=== PATIENT | male | born 1975 | race Caucasian/White ===

== ENCOUNTER 2017-10-17 08:16 | Day surgery (SDC) | payer BC ==
--- NOTE | 2017-10-12 17:09 | HP ---
PREOPERATIVE HISTORY AND PHYSICAL: DATE OF ADMISSION/SURGERY: 10/17/17 - [facility] DATE OF OFFICE VISIT: 10/11/17 ATTENDING SURGEON: Terri Griffith MD * (DICTATED BY PATRICK TRACEY) PROCEDURE: Left shoulder arthroscopic rotator cuff repair, decompression, debridement, and possible subpectoral biceps tenodesis. CHIEF COMPLAINT: Left shoulder pain. HISTORY OF PRESENT ILLNESS: Mr. Mccarty is a 42-year-old male who was referred to us by Dr. Santizo for left shoulder pain. 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 He states that he had an episode of shoulder pain 2 years ago. He got a cortisone injection and the pain resolved then. Then, he states that it got worsened about 6 weeks ago. He saw Dr. Santizo who did x-rays that revealed no fracture. Dr. Santizo performed a cortisone injection, which did help decrease the pain. Then, he had a fall on the shoulder on the day of the cortisone injection and had severe pain and weakness since the fall. So, Dr. Santizo ordered an MRI. He states that the pain has slowly decreased since the injection. He rates it as 3 /10 posterolateral ache. He reports cramping in his triceps. He was not on any recent PT. He takes ibuprofen as needed for pain. He has never had surgery in his left shoulder. He states that he has weakness above the head and with external rotation. He is able to sleep on the shoulder after the injection, but was not prior to the injection. He is not diabetic. He is a nonsmoker. He denies any fevers, chills, chest pain, shortness of breath and is doing well otherwise. PAST MEDICAL HISTORY: Hypertension. PAST SURGICAL HISTORY: Spinal surgery at L4 and 5 in 2005. No prior complications with the anesthesia. MEDICATIONS: 1. Percocet 5/325 one to two every 8 hours as needed for pain. 2. Multivitamin 1 by mouth daily. ALLERGIES: TRAMADOL and PENICILLIN. FAMILY HISTORY: Positive for heart disease and cancer. Negative for diabetes. Denies family history of DVT or PE. SOCIAL HISTORY: He lives with his spouse. He is a nonsmoker. He drinks 1 to 2 drinks per week. 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 He is right-hand dominant. He denies illegal drug use. REVIEW OF SYSTEMS: A 14-point review of systems was reviewed with the patient. Positive for current complaint; otherwise, negative. PHYSICAL EXAMINATION GENERAL: A 42-year-old, well-developed, well-nourished male, in no acute distress. Alert and oriented x3. Appropriate mood and affect. Appropriate balance and coordination of the upper extremities. VITAL SIGNS: Height 72, weight 203, blood pressure 124/82, respiratory rate 18 , temperature 97.7, BMI 27.5. HEENT: Normocephalic, atraumatic. PERRLA. Throat: Clear. NECK: Supple. PULMONARY: Lungs are clear to auscultation bilaterally. No wheezing, rhonchi, or rales. CARDIO: Regular rate and rhythm. S1, S2. No murmurs, gallops, or rubs. No edema. ABDOMEN: Positive bowel sounds, soft, nontender. NEURO: Alert and oriented x3. Cranial nerves grossly intact. Sensation is intact to light touch. MUSCULOSKELETAL: Left upper extremity, skin is intact. No warmth or erythema. Mild tenderness to palpation over the posterior aspect of the shoulder. Forward flexion, abduction to 170, external rotation to 75, internal rotation to T12. +4/5 strength supraspinatus testing, +4/5 strength infraspinatus, +5/5 to subscap testing. Positive impingement, Speeds, Guan-Remberto, [place]'s. +2 radial pulses. Sensation intact to light touch distally. DIAGNOSTIC STUDIES: Multi-view x-rays of the left shoulder revealed no evidence of acute fracture, dislocation. No obvious arthritis. MRI of the left shoulder revealed fluid around the biceps with a partial tear of the supraspinatus tendon and a full thickness and tear of the infraspinatus tendon with mild retraction. ASSESSMENT AND PLAN: Mr. Mccarty is a 42-year-old male who presents to the clinic for a left shoulder pain due to a partial tear of the supraspinatus and full thickness tear of the infraspinatus tendon with retraction as well as biceps tendinitis. Dr. Griffith recommends a rotator cuff repair with possible biceps tenodesis. Postop recovery and the surgery were discussed with the patient as well as risks of surgery to include bleeding, injury to blood vessels and the surrounding structures, infection, anesthesia, stiffness, failure of the repair, scarring, persistent pain, and DVT and PE were discussed with the patient. He has agreed to undergo surgery. Even though his biceps is asymptomatic at this point, it appears diseased on the MRI, so a biceps tenodesis will be performed. The patient is scheduled to undergo a Left shoulder arthroscopic rotator cuff repair, decompression, debridement and possible subpectoral biceps tenodesis with Dr. Griffith on 10/17/17. The patient will follow up with Dr. Griffith in 10 to 14 days postop for followup and suture removal. Percocet will be used for postop pain management. PATRICK TRACEY [id number]/[facility] #: [id number] MTDD
[~2017-10-17 08:16] MED LIST: Buffered Lidocaine 0.9% SYRIN* 5 ML/SYR SYRINGE INTRADERM ONE; Dexamethasone IV* 4 MG/ML 1 ML (4 MG) IV SLOW PU ONE; Famotidine TAB* 20 MG PO ONE; Midazolam* 1 MG/ML 5 ML VIAL (5 MG) ONE; fentaNYL* 50 MCG/ML 2 ML VIAL (100 MCG VIAL) ONE
[2017-10-17] MEDS ORDERED: Famotidine TAB* 20 MG ONE (08:26)
[2017-10-17] MEDS ORDERED: Clindamycin 900 MG IVPREMIX(* 900 MG/50 ML SDV IV ONE (08:26)
[2017-10-17] MEDS ORDERED: Dexamethasone IV* 4 MG/ML 1 ML (4 MG) ONE (08:26)
[2017-10-17] MEDS ORDERED: Bupivacaine 0.25% SDV* 30 ML ONE (09:18)
[2017-10-17] MEDS ORDERED: ROPIVACAINE 5 MG/ML 30 ML BTL (0.5%) ONE (09:19)
[2017-10-17] MEDS ORDERED: fentaNYL* 50 MCG/ML 2 ML VIAL (100 MCG VIAL) ONE ×4 (10:05→14:23)
[2017-10-17] MEDS ORDERED: Glycopyrrolate IV* 0.2 MG/ML 1 ML VIAL ONE ×2 (10:22→13:52)
[2017-10-17] MEDS ORDERED: Ketorolac INJ* 30 MG/ML 1 ML VIAL ONE (10:22)
[2017-10-17] MEDS ORDERED: Ondansetron INJ* 2 MG/ML VIAL ONE (10:22)
[2017-10-17] MEDS ORDERED: Propofol* 10 MG/ML 20 ML BTL IV PUSH ONE (10:22)
[2017-10-17] MEDS ORDERED: fentaNYL* 50 MCG/ML 2 ML VIAL (100 MCG VIAL) IV PRN (11:49)
[2017-10-17] MEDS ORDERED: Naloxone* 0.4 MG/ML 1 ML VIAL IV PRN (11:49)
[2017-10-17] MEDS ORDERED: Ondansetron INJ* 2 MG/ML VIAL IV PRN (11:49)
[2017-10-17] MEDS ORDERED: oxyCODONE/Acetamin 5/325 MG* TAB PO PRN (11:49)
[2017-10-17] MEDS ORDERED: HYDROmorphone INJ* 1 MG/ML CARPUJECT SYRINGE IV PRN (11:49)
[2017-10-17] MEDS ORDERED: Midazolam* 1 MG/ML 5 ML VIAL (5 MG) ONE (12:05)
[2017-10-17] MEDS ORDERED: oxyCODONE/Acetamin 5/325 MG* TAB ONE (12:26)
[2017-10-17 13:26] VITALS: BP 125/67
[2017-10-17] MEDS ORDERED: Ketorolac 0.5% OPHTH (NF) 0.5 % 5 ML BTL ONE (16:26)
[2017-10-17] MEDS ORDERED: Neomycin/Polymy/Dex OPHTH.OIN* 3.5 GM ONE (16:26)
[2017-10-17] MEDS ORDERED: Tetracaine 0.5% OPTH.SOL 4 ML* 1 DROP BTL ONE (16:26)
[2017-10-17] MEDS ORDERED: Povidone Iodine 5% OPTH* 30 ML BTL ONE (16:26)
[2017-10-17] MEDS ORDERED: Cyclopentolate 1% OPTH.SOL* 2 ML BTL ONE (16:26)
[2017-10-17] MEDS ORDERED: Tropicamide 1% OPTH.SOL* BTL ONE (16:26)
[2017-10-17] MEDS ORDERED: Phenylephrine 2.5% OPTH.SOL* 2 ML BTL ONE (16:26)
[2017-10-17] MEDS ORDERED: Lidocaine 1% MPF* 2 ML VIAL ONE (16:26)
[2017-10-17] MEDS ORDERED: acetaZOLAMIDE TAB* 250 MG ONE (16:26)
--- NOTE | 2017-10-30 02:18 | OP ---
OPERATIVE REPORT: DATE OF OPERATION: 10/17/17 DATE OF : 71 SURGEON: Terri Griffith MD CODING FILE CLERK: PATRICK Mark An library assistant was needed for the entirety of the case to help with positioning, retraction and was utilized throughout all portions of the case. ANESTHESIOLOGIST: Dr. Crawford. ANESTHESIA: General with interscalene block. PRE-OP DIAGNOSIS: Left shoulder tear of the infraspinatus tendon with superior labral tear. POST-OP DIAGNOSIS: Left shoulder tear of the infraspinatus tendon with superior labral tear. OPERATIVE PROCEDURE: Left shoulder arthroscopy with: 1. Glenohumeral debridement. 2. Subacromial decompression with acromioplasty. 3. Repair of the infraspinatus and the posterior aspect of supraspinatus tendon in a double-row fashion. 4. Subpectoral biceps tenodesis. IMPLANTS: Two 4.75 HEALICOIL and two MultiFix anchors and one 2.8 mm Q-Fix. COMPLICATIONS: None. ESTIMATED BLOOD LOSS: Minimal. INDICATIONS: Sebastian Mccarty is a 42-year-old gentleman who presents with a left shoulder rotator cuff tear, appears to be an isolated infraspinatus. He was profoundly weak on exam. He has failed conservative measures including physical therapy, anti- inflammatories and injection. Although his pain was resolved, he had weakness and was unable to continue his activities of daily living. Risks and benefits of surgery were discussed at length and limited to bleeding and infection, surrounding structures, wound nonhealing, persistent pain, need for further surgery, scarring, stiffness, incomplete relief of symptoms and risk of anesthesia. DESCRIPTION OF PROCEDURE.: The patient was greeted in the preoperative area by the attending surgeon. The correct extremity was marked and the consent was confirmed. He underwent interscalene nerve block by the anesthesiologist, after which he was brought back to the operating suite, where he was placed in supine position on the operating table. He then under underwent general anesthesia with endotracheal intubation, after which he was placed in the right lateral decubitus position. All bony prominences were padded. He was secured with a pegboard and an axillary roll was placed. The left arm was suspended unsterile with 10 pounds of traction. The left shoulder was then prepped and draped in usual sterile fashion beginning with chlorhexidine soap, scrub, and alcohol wipe and a final prep with ChloraPrep. After appropriate surgical pause indicating site, side, procedure, administration of antibiotics, the standard posterolateral portal was made sharply with an 11 blade. Scope was introduced into the joint. Joint was examined. There were grade 0 to 1 changes in the glenohumeral joint with no unstable fraying. Subscap was intact with mild fraying. The anterior portal was made in an outside-in fashion, debrided this back. There was synovitis and inflammation of the joint. There was damage and irritation to the biceps insertion with fraying of the anterior, posterior, superior labrums, we debrided back. There was evidence of a high grade partial thickness tear of the infraspinatus and some mild tearing of the partial tear of supraspinatus tendon. The biceps was then tenotomized for later tenodesis. Once the debridement was complete, attention was directed to the subacromial space. The scope was positioned in the subacromial space. The lateral portal was made in an outside-in fashion. The shaver was used to debride the significant bursa that was present and it helped to identify the infraspinatus tendon, which had a high grade near full thickness bursal sided tear. Part of the stump was still attached to the humerus, and there was some atrophy of the supraspinatus tendon. At this point, undersurface of the acromion was skeletonized using electrocautery device. The oval judy was used to do an acromioplasty and remove the anterolateral spur, after which attention was directed to rotator cuff. The cuff was carefully released using electrocautery device posteriorly the infraspinatus as well as a small portion of supraspinatus. The bone was then skeletonized using electrocautery device, rasped, and as well as the portal oval judy was then used to gently decorticate it. At this point, through separate stab incision, the two 4.75 Healicoil anchors were placed with excellent purchase. The patient had good quality bone. The sutures were then passed through the tendon in a horizontal mattress configuration including some of the posterior portion of the supraspinatus as well as the infraspinatus tendon. The sutures were then tied down to help secure the rotator cuff. They were then passed, the anterior ones were passed through MultiFix anchor anteriorly. The posterior ones were passed through a second MultiFix anchor posterolateral. This helped to compress and restore the cuff. The wounds were copiously irrigated. At this point, final images were obtained and the wounds were copiously irrigated. Attention was directed to the biceps. The bed was airplaned to the left side. The anterior aspect of the shoulder was prepped again using ChloraPrep. A 15 blade was used to make an incision in line with the biceps tendon encompassing the inferior tendon. Soft tissues were carefully dissected to expose the pec fascia. The remainder of the dissection was done bluntly. The [place] was used to elevate the pec tendon. Biceps was then brought through the wound and there was abundant synovitis and erythema that was present. The groove was then prepared in a usual fashion using the electrocautery device, the red ball rasp, and the osteotome to allow for bony bleeding bed. The Q- Fix guide was then used to drill unicortically. The Q-Fix was deployed with excellent purchase. The sutures were then passed through the biceps tendon approximately 1 cm proximal to the musculotendinous junction and in a Victor Manuel-Alvaro type configuration. Excess stump was excised. The biceps was shovelled back into the wound and secured. The wounds were copiously irrigated with sterile saline. The anterior wound was closed with 2-0 Vicryl and 2-0 Monocryl. Sterile dressings were applied. The anterior wound was injected with 20 cc of 0.25% Marcaine plain. A Cryo/Cuff and an UltraSling was applied. He was awoken from anesthesia, transferred to PACU in stable condition. POSTOPERATIVE PLAN: He will be nonweightbearing. He will be in a sling for 6 weeks, he will be allowed to have range of motion of elbow, wrist, and hand. He will be allowed to do pendulum. He is going to be discharged on pain medications and antibiotics. DVT prophylaxis was considered, but deferred due to no previous personal or family history. I will see the patient back in 14 days. [id number]/[facility] #: [id number] CHANELLE
== END 2017-10-17 13:15 | disposition home or self-care (01) ==
LOC: OREAST 08:16
PROVIDERS: ATTEND Orthopaedic Surgery
DX: S46.012A Strain of muscle(s) and tendon(s) of the rotator cuff of left shoulder, initial encounter (principal); S43.492A Other sprain of left shoulder joint, initial encounter; X50.3XXA Overexertion from repetitive movements, initial encounter; Y93.B9 Activity, other involving muscle strengthening exercises; Y92.9 Unspecified place or not applicable; G89.18 Other acute postprocedural pain
CPT/HCPCS: A9270-GY; C1713; C1776; J1100; J1885; J2250; J2405; J2704; J2795; J3010